=== PATIENT | female | born 1965 | race Caucasian/White ===

== ENCOUNTER 2017-02-08 14:29 | Emergency (ER) | payer OTHER ==
[2017-02-08 14:35] VITALS: TEMP 97.7
--- NOTE | 2017-02-08 14:57 | CPEKG ---
Heart Rate: 81 RR Interval: 741 P-R Interval: 136 QRSD Interval: 76 QT Interval: 380 QTC Interval: 441 P [place]: 20 QRS [place]: 29 T Wave [place]: 21 EKG Severity - NORMAL ECG - EKG Impression: SINUS RHYTHM Electronically Signed By: David Nava 08-Feb-2017 21:44:06
--- NOTE | 2017-02-08 15:09 | EDPHY ---
H & P Time Seen by Provider: 02/08/17 14:53 HPI/ROS: Chief complaint. Racing heart HPI. 51-year-old female has left chest pain that developed last night. She had a panic attack last night which she describes palpitations, shortness of breath and dizziness. She continues to have left anterior chest discomfort that occasionally radiates to her left arm. She says that she can't describe the quality of her chest discomfort. She also notes it hurts to breathe. She notes that her chest is tender to push on. She also notes that she has been sweating. No fever. She quit smoking 6 months ago. She has no unusual leg pain or swelling. ROS Constitutional. no fever/chills, no weakness Eyes. no problems with vision ENT. no sore throat, no nasal drainage Cardiovascular. Left-sided chest pain Respiratory. Shortness of breath Abdominal. no abdominal pain, no nausea/vomiting, no diarrhea . no problems urinating MS. no calf pain/swelling, no neck/back pain, no joint pain Skin. no rash Lymph. no swollen glands Neuro. no headache, no dizziness, no difficulty walking or with speech Past Medical/Surgical History: Past medical history significant only for irregular menstrual. Family history coronary artery disease only and grandparents at an elderly age Social History: Single nonsmoker no alcohol Smoking Status: Former smoker Physical Exam: General Appearance: Alert well-developed female mild distress vital signs are stable. Somewhat anxious appearing Eyes: Pupils equal and round no pallor or injection. ENT, Mouth: Mucous membranes are moist. Respiratory: There are no retractions, lungs are clear to auscultation. Cardiovascular: Regular rate and rhythm. Gastrointestinal: Abdomen is soft and nontender, no masses, bowel sounds normal. Neurological: Awake and alert, sensory and motor exams grossly normal. Skin: Warm and dry, no rashes. Musculoskeletal: Neck is supple nontender. Extremities symmetrical, full range of motion. Psychiatric: Patient is oriented X 3, there is no agitation. Constitutional: Initial Vital Signs Temperature (C) 36.5 C 02/08/17 14:30 Heart Rate 91 02/08/17 14:30 Respiratory Rate 16 02/08/17 14:30 Blood Pressure 137/105 H 02/08/17 14:30 O2 Sat (%) 96 02/08/17 14:30 O2 Delivery Mode Room Air Allergies/Adverse Reactions: shrimp Allergy (Uncoded 02/08/17 14:35) Home Medications: Medication Instructions Recorded Vitamin B Complex 02/08/17 Medical Decision Making - Diagnostics EKG Interpretation: EKG interpreted by me shows normal sinus rhythm with normal interval and axis. QRS is normal ST-T segments are normal. There is no significant ST elevation or depression. No arrhythmia. The rate is 81 Imaging: One-view chest x-ray interpreted by me is normal CT angio chest reviewed by me and discussed with Dr. Busch is negative for pulmonary embolus. There is an incidental pulmonary nodule requiring 1 year follow-up. And an apparent hemangioma in the lobe of the liver. Procedures: IV normal saline, monitor ED Course/Re-evaluation: Re-evaluation 4:10 p.m.. Patient's D-dimer is high. She and I discussed imaging EKG in lab results. We discussed treatment plan including recommendation for CT angiogram of her chest. She expresses understanding and agrees re-evaluation at 5:10 p.m. patient is stable. She and I discussed imaging and lab results as well as EKG findings. We discussed treatment plan. She is offered admission but she declines and would prefer outpatient workup. We discussed risks and benefits of outpatient workup versus staying in the hospital. She expresses understanding and agreement. She is encouraged to return at any time should she be worse Differential Diagnosis: I considered acute coronary syndrome, anxiety, pulmonary embolus, muscular discomfort - Data Points Laboratory Results: Laboratory Results 02/08/17 15:11 02/08/17 15:11 02/08/17 02/08/17 02/08/17 15:11 15:11 15:11 WBC 5.15 10^3/uL 10^3/uL (3.80-9.50) RBC 4.90 10^6/uL 10^6/uL (4.18-5.33) Hgb 14.8 g/dL g/dL (12.6-16.3) Hct 43.4 % % (38.0-47.0) MCV 88.6 fL fL (81.5-99.8) MCH 30.2 pg pg (27.9-34.1) MCHC 34.1 g/dL g/dL (32.4-36.7) RDW 12.1 % % (11.5-15.2) Plt Count 185 10^3/uL 10^3/uL (150-400) MPV 11.4 fL fL (8.7-11.7) Neut % (Auto) 54.1 % % (39.3-74.2) Lymph % (Auto) 30.9 % % (15.0-45.0) [place] % (Auto) 12.2 % % (4.5-13.0) Eos % (Auto) 1.2 % % (0.6-7.6) Baso % (Auto) 1.4 % % (0.3-1.7) Nucleat RBC Rel Count 0.0 % % (0.0-0.2) Absolute Neuts (auto) 2.79 10^3/uL 10^3/uL (1.70-6.50) Absolute Lymphs (auto) 1.59 10^3/uL 10^3/uL (1.00-3.00) Absolute Monos (auto) 0.63 10^3/uL 10^3/uL (0.30-0.80) Absolute Eos (auto) 0.06 10^3/uL 10^3/uL (0.03-0.40) Absolute Basos (auto) 0.07 10^3/uL 10^3/uL (0.02-0.10) Absolute Nucleated RBC 0.00 10^3/uL 10^3/uL (0-0.01) Immature Gran % 0.2 % % (0.0-1.1) Immature Gran # 0.01 10^3/uL 10^3/uL (0.00-0.10) D-Dimer 1.06 ug/mLFEU H ug/mLFEU (0.00-0.50) Sodium 139 mEq/L mEq/L (134-144) Potassium 4.0 mEq/L mEq/L (3.5-5.2) Chloride 103 mEq/L mEq/L (97-110) Carbon Dioxide 23 mEq/l mEq/l (22-31) Anion Gap 13 mEq/L mEq/L (8-16) BUN 17 mg/dL mg/dL (7-23) Creatinine 0.7 mg/dL mg/dL (0.6-1.0) Estimated GFR > 60 Glucose 123 mg/dL H mg/dL (70-100) Calcium 10.0 mg/dL mg/dL (8.5-10.4) Troponin I < 0.012 ng/mL ng/mL (0-0.034) Lipase 89.0 IU/L IU/L (23-300) TSH 1.180 uIU/mL uIU/mL (0.465-4.680) Departure - Departure Disposition: Home, Routine, Self-Care Clinical Impression: Chest pain Qualifiers: Chest pain type: unspecified Qualified Code(s): R07.9 - Chest pain, unspecified Condition: Good Instructions: Chest Pain (ED) Additional Instructions: Easy activity. Return for worsening chest discomfort or trouble breathing. Call tomorrow morning to arrange stress test and follow-up cardiac evaluation. Referrals: Ellie Luo MD [Primary Care Provider] - As per Instructions Jovanna Escobar MD [Medical Doctor] - 2-3 days, call for appt.
[2017-02-08 15:22] LABS: % IMMATURE GRANULYOCYTES 0.2 % (0.0-1.1); ABSOLUTE IMMATURE GRANULOCYTES 0.01 10^3/uL (0.00-0.10); ADD DIFF? NO; ADD MORPH? NO; ADD SCAN? NO; ATYPICAL LYMPHOCYTE FLAG 20 (0-99); FRAGMENT RBC FLAG 0 (0-99); HEMATOCRIT 43.4 % (38.0-47.0); HEMOGLOBIN 14.8 g/dL (12.6-16.3); LEFT SHIFT FLG 0 (0-99); LIPEMIA HEMOLYSIS FLAG 90 (0-99); MEAN CELL HEMOGLOBIN 30.2 pg (27.9-34.1); MEAN CELL HEMOGLOBIN CONCENTR. 34.1 g/dL (32.4-36.7); MEAN CELL VOLUME 88.6 fL (81.5-99.8); MEAN PLATELET VOLUME 11.4 fL (8.7-11.7); PLATELET CLUMPS FLAG 0 (0-99); PLATELET COUNT 185 10^3/uL (150-400); RED CELL DISTRIBUTION WIDTH 12.1 % (11.5-15.2)
[2017-02-08 15:37] LABS: ANION GAP 13 mEq/L (8-16); CARBON DIOXIDE 23 mEq/l (22-31); CHLORIDE 103 mEq/L (97-110); CREATININE 0.7 mg/dL (0.6-1.0); GLOMERULAR FILTRATION RATE > 60; GLUCOSE 123 mg/dL (70-100); SODIUM 139 mEq/L (134-144)
[2017-02-08 15:48] LABS: TROPONIN I < 0.012 ng/mL (0-0.034)
[2017-02-08] MEDS ORDERED: IOPAMIDOL (ISOVUE 370) 100 ML BTL IV ONE (16:15)
[2017-02-08 17:26] VITALS: BP 140/90; PULSE 85; RESP 18; O2SAT 95
== END 2017-02-08 17:26 | disposition home or self-care (01) ==
DX: R07.9 Chest pain, unspecified (principal); Z87.891 Personal history of nicotine dependence
CPT/HCPCS: Q9967